=== PATIENT | male | born 1945 | race Caucasian/White ===

== ENCOUNTER 2018-10-30 10:45 | Outpatient (CLI) | payer MEDICARE ==
[2018-10-30 12:19] LABS: Hemoglobin 15.5 g/dL (14.0-18.0); Mean Corpuscular HGB CONC 34.3 g/dL (32.0-36.0); Mean Corpuscular Volume 96.4 fL (78.0-98.0); Mean Platelet Volume 7.5 fL (7.4-10.4); Platelet Count 194 thou/uL (130-400); RBC Distribution Width 13.2 % (11.5-14.5); Red Blood Cell (RBC) Count 4.68 mill/uL (4.70-6.10); White Blood Cell (WBC) Count 8.7 thou/uL (4.8-10.8)
[2018-10-30 12:27] LABS: Bilirubin Negative (Negative); Blood, Urine Negative (Negative); Clarity Clear (Clear); Glucose, Urine (Dipstick) Normal (Negative); Leukocyte 75 Leu/uL (Negative); Nitrite Negative (Negative); Protein, Urine (Dipstick) 10 mg/dL (Neg-Trace); WBC/HPF 21-50 HPF (0-3)
[2018-10-30 12:29] LABS: PTT 30.1 SEC (22.9-36.1); Prothrombin Time 13.4 SEC (12.0-14.7)
[2018-10-30 12:38] LABS: Anion Gap 12 mmol/L (10-20); BUN (Urea Nitrogen) 12 mg/dL (8.4-25.7); Calc. Creatinine Clearance 0 mL/min (70-130); Calcium 9.5 mg/dL (7.8-10.44); Carbon Dioxide 29 mmol/L (23-31); Chloride 105 mmol/L (98-107); Estimated GFR-MDRD Greater than 90; Glucose 109 mg/dL (80-115); Potassium 3.8 mmol/L (3.5-5.1); Sodium 142 mmol/L (136-145)
[2018-10-30 13:19] LABS: RBC/HPF 0-3 HPF (0-3)
== END 2018-10-30 10:46 | disposition home or self-care (01) ==
LOC: LABBT 10:45
PROVIDERS: ATTEND Urology
DX: Z01.818 Encounter for other preprocedural examination (principal); N40.1 Benign prostatic hyperplasia with lower urinary tract symptoms
CPT/HCPCS: 80048; 81001; 85027; 85610; 85730; 87086; 93005; 93010

== ENCOUNTER 2018-11-12 09:46 | Observation (INO) | payer MEDICARE ==
[2018-10-30 10:59] VITALS: BMI 25.4
[2018-11-12] MEDS ORDERED: Sodium Chloride 0.9% 100 ML ONE (11:21)
[2018-11-12] MEDS ORDERED: cefTRIAXone\\ROCEPHIN 1 GM VIAL ONE (11:21)
[2018-11-12] MEDS ORDERED: HYDROmorphone 0.5 MG/0.5 ML SYRINGE ONE (12:09)
[2018-11-12] MEDS ORDERED: Fentanyl 100 MCG/2 ML VIAL ONE (12:09)
[2018-11-12] MEDS ORDERED: Ondansetron HCl/PF 4 MG/2 ML Vial IVP PRN (13:39)
[2018-11-12] MEDS ORDERED: HYDROmorphone 2 MG/ML VIAL SLOW IVP PRN (13:39)
[2018-11-12] MEDS ORDERED: Promethazine HCl 25 MG/ML VIAL SLOW IVP PRN (13:39)
[2018-11-12] MEDS ORDERED: PACU-Morphine 4MG/ML VIAL SLOW IVP PRN (13:39)
[2018-11-12] MEDS ORDERED: Promethazine HCl 25 MG/ML VIAL IM PRN (13:39)
[2018-11-12] MEDS ORDERED: Albuterol Sulfate 1.25 MG/3 ML NEB NEB PRN (13:50)
[2018-11-12] MEDS ORDERED: PROVENTIL INHALER 6.7 G (200 INHALATIONS) INH PRN (13:50)
[2018-11-12] MEDS ORDERED: Phenazopyridine HCl 97.5 MG TABLET PO PRN (13:51)
[2018-11-12] MEDS ORDERED: Morphine 4 MG/ML VIAL SLOW IVP PRN (13:51)
[2018-11-12] MEDS ORDERED: Acetaminophen 500 MG TAB PO PRN (13:51)
[2018-11-12] MEDS ORDERED: Oxybutynin 5 MG TAB PO PRN (13:51)
[2018-11-12] MEDS ORDERED: Ondansetron PF 4 MG/2 ML Vial IVP PRN (13:51)
[2018-11-12] MEDS ORDERED: diphenhydrAMINE 25 MG CAP PO PRN (13:51)
[2018-11-12] MEDS ORDERED: Mag-Al 1200 mg/1200 mg/30 ML UDCUP PO PRN (13:51)
[2018-11-12] MEDS ORDERED: Bisacodyl 10 MG SUPP PR PRN (13:51)
[2018-11-12] MEDS ORDERED: hydrALAZINE 20 MG/ML VIAL SLOW IVP PRN (13:51)
[2018-11-12] MEDS ORDERED: traMADol HCl 50 MG TAB PO PRN (13:53)
[2018-11-12] MEDS ORDERED: Ketorolac Tromethamine 30 MG/ML VIAL ONE ×2 (13:57→14:06)
[2018-11-12] MEDS ORDERED: Methotrexate Sodium 2.5 MG TAB PO SCH (14:00)
[2018-11-12] MEDS ORDERED: Lidocaine 1% PF 5 ML VIAL ONE (14:06)
[2018-11-12] MEDS ORDERED: Ondansetron PF 4 MG/2 ML Vial ONE (14:06)
[2018-11-12] MEDS ORDERED: PROPOFOL 200 MG/20 ML VIAL ONE (14:06)
[2018-11-12] MEDS ORDERED: Dexamethasone 20 MG/5 ML VIAL ONE (14:06)
[2018-11-12] MEDS ORDERED: ePHEDrine 50 MG/ML VIAL ONE (14:06)
--- NOTE | 2018-11-12 17:15 | OP ---
DATE OF PROCEDURE: 11/12/2018 SERVICE: Urology. PREOPERATIVE DIAGNOSIS: Benign prostatic hyperplasia, regrowth. POSTOPERATIVE DIAGNOSIS: Benign prostatic hyperplasia, regrowth. PROCEDURE PERFORMED: Repeat transurethral resection of the prostate. INDICATION FOR PROCEDURE: Mr. Polo is a 73-year-old white male with a history of TURP in the past. He had recurrent urinary symptoms and on cystoscopy has a dominant regrowth nodule along the lateral lobe of his prostate. I discussed the medical therapy versus surgical therapy and he has agreed to proceed forward with surgical resection. Risks and benefits have been discussed and he has agreed to proceed forward. DESCRIPTION OF PROCEDURE: After identification of armband and verification of consent, the patient was brought back to the operating room, where he underwent general anesthesia with an LMA. He was then placed in the lithotomy position and prepped and draped in a sterile fashion. After appropriate time-out, an attempt to place a lubricated 26-[place] resectoscope sheath with visual obturator was unsuccessful at the meatus. The meatus had to be dilated with Otley sounds up to 30-[place] at which point, the visual obturator was able to be passed easily. There was a mild bulbar urethral stricture, which was able to be navigated past with the visual obturator and into the prostatic fossa, which showed significant regrowth of prostate tissue. The bladder neck and the remainder of the prostate was open. The visual obturator was then switched out for the bipolar prostate resectoscope loop. Resection was started on the lateral lobe, which we had the dominant regrowth nodule and resected down until it was flushed with the remainder of the prostate TUR resection cavity. There was some lateral and anterior regrowth as well, which we resected. Resection was carried down until it was flushed with the prostate capsule for the remainder of the prostate fossa all the way from the bladder neck to the verumontanum. The bladder neck was not incised as it was widely patent and I did not want to risk a bladder neck contracture. Upon completion, the prostate was wide open. Meticulous hemostasis was performed of the prostate fossa and then the prostate chips were evacuated with the resectoscope loop and with an Cubeit.fmik evacuator. Both ureters were identified in orthotopic location unharmed at the end of the procedure. The prostate fossa was dry. The resectoscope was then removed and attempts to place a 22-[place] three-way Wilson catheter was unsuccessful as the catheter was coiling within the prostate. The resectoscope had to be reintroduced with the visual obturator back into the bladder. The obturator and camera were then removed leaving the outer sheath in place. An Amplatz Super Stiff wire was then placed through the outer sheath into the bladder and the outer sheath removed. The three-way Wilson catheter was converted to a [place] tip catheter using a 14-gauge Angiocath needle, which used to guide a wire through the catheter, which was then placed over the Super Stiff wire into the bladder. The wire was then removed and 30 mL of sterile water placed into the balloon. CBI was initiated and hooked up to gravity drainage. The patient was then taken out of lithotomy, awakened, taken to PACU for recovery in stable condition. COMPLICATIONS: None. ESTIMATED BLOOD LOSS: Minimal. RETAINED TUBES AND DRAINS: A 22-[place] three-way Wilson catheter. SPECIMENS: Prostate chips. DISPOSITION: The patient will be kept in the hospital overnight for monitoring of hematuria. We will plan a void trial in the morning and discharge home subsequently. Job ID: [id number]
[2018-11-12] MEDS ORDERED: Polyethylene Glycol 3350 17 GM Packet PO SCH (21:00)
[2018-11-12] MEDS ORDERED: BUDESONIDE NS SCH (21:00)
[2018-11-12] MEDS ORDERED: Pravastatin Sodium 40 MG TAB PO SCH (21:00)
[2018-11-13 04:16] LABS: #Lymphocytes 0.6 thou/uL (1.20-3.40); #Monocytes 0.7 thou/uL (0.11-0.59); #Neutrophils 10.2 thou/uL (1.40-6.50); %Basophils 0.1 % (0.0-1.0); %Eosinophils 0.1 % (0.0-10.0); %Lymphocytes 5.1 % (21.0-51.0); %Monocytes 5.7 % (0.0-10.0); Hemoglobin 13.9 g/dL (14.0-18.0); Mean Corpuscular HGB CONC 33.8 g/dL (32.0-36.0); Mean Corpuscular Hemoglobin 32.2 pg (27.0-31.0); Mean Corpuscular Volume 95.1 fL (78.0-98.0); Mean Platelet Volume 7.3 fL (7.4-10.4); Platelet Count 202 thou/uL (130-400); RBC Distribution Width 13.3 % (11.5-14.5); Red Blood Cell (RBC) Count 4.31 mill/uL (4.70-6.10); White Blood Cell (WBC) Count 11.5 thou/uL (4.8-10.8)
[2018-11-13 05:23] LABS: Anion Gap 11 mmol/L (10-20); BUN (Urea Nitrogen) 17 mg/dL (8.4-25.7); Calc. Creatinine Clearance 101 mL/min (70-130); Carbon Dioxide 26 mmol/L (23-31); Chloride 104 mmol/L (98-107); Estimated GFR-MDRD Greater than 90; Glucose 158 mg/dL (83-110); Potassium 4.1 mmol/L (3.5-5.1); Sodium 137 mmol/L (136-145)
[2018-11-13] MEDS ORDERED: Folic Acid 1 MG TAB PO SCH (09:00)
[2018-11-13] MEDS ORDERED: cefTRIAXone\\ROCEPHIN 1 GM in Sodium Chloride 0.9% 100 ML IVPB SCH (09:00)
[2018-11-13 12:15] VITALS: BP 120/69; TEMP 98
--- NOTE | 2018-11-13 15:10 | PRG ---
DATE OF SERVICE: 11/13/2018 SUBJECTIVE: The patient states he is doing well. No complaints. No pain. No bladder spasms. OBJECTIVE: VITAL SIGNS: Temperature 97.7, pulse 67, respirations 18, blood pressure 111/77, and saturations 96% on room air. GENERAL: No apparent distress. CARDIOVASCULAR: Regular rate and rhythm. ABDOMEN: Soft, nontender, and nondistended. : Wilson catheter in place. CBI off. Urine is completely clear. EXTREMITIES: No edema. SCDs in place. LABORATORY EVALUATION: The full set of labs are in the [facility] system, which I have reviewed. Of note, hemoglobin 13.9 with a creatinine of 0.7. ASSESSMENT AND PLAN: A 73-year-old white male, status post repeat transurethral resection of the prostate, postoperative day #1 with clear urine. We will plan void trial. If urine is clear and the patient able to void, the patient can be discharged home. He will follow up with me in approximately 1 to 2 weeks for postop check. I have gone over his discharge instructions and discharge medications with him. Job ID: [id number]
== END 2018-11-13 14:55 | disposition home or self-care (01) ==
LOC: SDC 09:46 → SURG A 14:13
PROVIDERS: ADMIT Urology; ATTEND Urology
PROC: 0VT08ZZ Resection of Prostate, Via Natural or Artificial Opening Endoscopic (ICD-10-PCS; principal; 2018-11-12)
DX: N40.1 Benign prostatic hyperplasia with lower urinary tract symptoms (principal); R39.12 Poor urinary stream; R30.0 Dysuria; R35.0 Frequency of micturition; R35.1 Nocturia; E78.00 Pure hypercholesterolemia, unspecified; J45.909 Unspecified asthma, uncomplicated; M06.9 Rheumatoid arthritis, unspecified; R09.1 Pleurisy; Z79.899 Other long term (current) drug therapy; Z88.1 Allergy status to other antibiotic agents; Z88.5 Allergy status to narcotic agent
CPT/HCPCS: 52601; 80048; 85025; 88305; 96374; G0378; 36415; J0696; J1100; J1170; J1885; J2001; J2405; J2704; J3010; J3490

== ENCOUNTER 2020-02-09 11:27 | Inpatient (IN) | payer MEDICARE, OTHER ==
[~2020-02-09 11:27] MED LIST: Dexamethasone 20 MG/5 ML VIAL ONE; Iopamidol-370 76% 500 ML 1 ML ONE; Ketorolac Tromethamine 30 MG/ML VIAL ONE; Lidocaine 1% PF 5 ML VIAL ONE; Ondansetron PF 4 MG/2 ML Vial ONE; PROPOFOL 200 MG/20 ML VIAL ONE; Rocuronium Bromide 10 MG/ML (10ML VIAL) ONE; Succinylcholine Chloride 20 MG/ML 10 ml SYRINGE FS ONE
[2020-02-09] MEDS ORDERED: Ketorolac Tromethamine 30 MG/ML VIAL ONE (12:02)
[2020-02-09 12:13] LABS: #Basophils 0.1 thou/uL (0.0-0.2); #Eosinphils 0.1 thou/uL (0.0-0.7); #Lymphocytes 0.9 thou/uL (1.20-3.40); #Monocytes 0.4 thou/uL (0.11-0.59); #Neutrophils 7.5 thou/uL (1.40-6.50); %Basophils 0.6 % (0.0-1.0); %Eosinophils 0.7 % (0.0-10.0); %Lymphocytes 9.5 % (21.0-51.0); %Monocytes 4.7 % (0.0-10.0); %Neutrophils 84.4 % (42.0-75.0); Hemoglobin 14.9 g/dL (14.0-18.0); Mean Corpuscular HGB CONC 35.4 g/dL (32.0-36.0); Mean Corpuscular Hemoglobin 33.8 pg (27.0-31.0); Mean Corpuscular Volume 95.4 fL (78.0-98.0); Mean Platelet Volume 7.6 fL (7.4-10.4); Platelet Count 209 thou/uL (130-400); RBC Distribution Width 12.6 % (11.5-14.5); Red Blood Cell (RBC) Count 4.39 mill/uL (4.70-6.10); White Blood Cell (WBC) Count 8.9 thou/uL (4.8-10.8)
[2020-02-09 12:38] LABS: ALT (SGPT) 21 U/L (8-55); AST (SGOT) 21 U/L (5-34); Albumin 4.2 g/dL (3.4-4.8); Alkaline Phosphatase 66 U/L (40-110); Anion Gap 13 mmol/L (10-20); BUN (Urea Nitrogen) 11 mg/dL (8.4-25.7); Bilirubin, Total 1.2 mg/dL (0.2-1.2); Calc. Creatinine Clearance 0 mL/min (70-130); Calcium 9.2 mg/dL (7.8-10.44); Carbon Dioxide 25 mmol/L (23-31); Chloride 105 mmol/L (98-107); Estimated GFR-MDRD Greater than 90; Globulin 2.5 g/dL (2.4-3.5); Glucose 91 mg/dL (83-110); Lipase 22 U/L (8-78); Potassium 3.8 mmol/L (3.5-5.1); Protein, Total 6.7 g/dL (5.8-8.1); Sodium 139 mmol/L (136-145)
[2020-02-09 12:57] LABS: Bilirubin Negative (Negative); Blood, Urine Negative (Negative); Clarity Clear (Clear); Glucose, Urine (Dipstick) Normal (Negative); Ketone, Urine 20 mg/dL (Negative); Leukocyte Negative Leu/uL (Negative); Nitrite Negative (Negative); Protein, Urine (Dipstick) Negative (Neg-Trace); Urobilinogen Normal mg/dL (Less than 2); pH, Urine 6.5 (5.0-9.0)
--- NOTE | 2020-02-09 13:14 | CT ---
EXAM: CT ABDOMEN AND PELVIS HISTORY: Lower abdominal pain, x3 days COMPARISON: None. Procedure: Multiple contiguous axial images were obtained and a CT of the abdomen and pelvis with IV contrast. C oronal reformats were performed. FINDINGS: Lower Chest: within normal limits. Vessels: Atherosclerosis of a nonaneurysmal aorta Heart: Normal heart size. No significant pericardial fluid Abdomen: Portal vein:Patent Gallbladder: No calcified gallstones. Normal caliber wall. Liver: within normal limits. Pancreas: within normal limits. Spleen: within normal limits. Adrenals: within normal limits. Kidneys: Symmetric enhancement. No obstructive uropathy. Peritoneum: No ascites or free air, no fluid collection. There does appear to be edema involving the lower central abdominal mesentery. No associated well-defined fluid collection. Bowel: Limited evaluation due to the lack of oral contrast administration. No evidence of bowel obstr uction. Ileocecal junction is unremarkable. Normal caliber appendix. Scattered fecal material in a nondistended, nondilated colon. Diverticulosis, without evidence of diverticulitis. Mesentery and Retroperitoneum: No enlarged or retroperitoneal lymph nodes. Abdominal Wall: Small umbilical hernia containing mesenteric fat Pelvis: Reproductive Organs: Reproductive organs are unremarkable. Pelvis: No mass, lymphadenopathy, free air or free fluid. Bladder: within normal limits. Bones: No lytic or blastic lesions in the osseous structures. Multilevel vacuum disc phenomenon. [place] llic cage at the L5-S1 level. IMPRESSION: 1. Stranding of the central abdominal mesentery. Etiology is uncertain. No obvious small bowel source . Correlate for is mesenteritis. Consider GI or general surgical consultation.
[2020-02-09] MEDS ORDERED: Glycopyrrolate 0.4 MG/ 2 ML VIAL SLOW IVP SCH (14:30)
[2020-02-09] MEDS ORDERED: Glycopyrrolate 0.2 MG/ML 5 ML SYRINGE SLOW IVP SCH (15:00)
[2020-02-09] MEDS ORDERED: Acetaminophen 500 MG TAB ONE ×2 (15:12→15:30)
[2020-02-09] MEDS ORDERED: Piperacillin/Tazobactam 4.5 GM VIAL ONE (15:53)
[2020-02-09] MEDS ORDERED: metroNIDAZOLE 500 MG in Premix Bag 1 BAG IVPB ONE (16:15)
--- NOTE | 2020-02-09 16:20 | HP ---
HISTORY OF PRESENT ILLNESS: Manoj Polo is a 74-year-old male patient with severe abdominal pain for 2 days, it is worsening, presents to the emergency room, evaluated with normal CBC, basic metabolic profile, normal liver function tests, normal lipase. Troponins are normal. The patient had a colonoscopy, Dr. Willis on 01/19/2020, had a couple of polyps removed. The patient states he had a very small bowel movement yesterday without blood. The patient's CAT scan of abdomen and pelvis revealed some mesenteric edema, otherwise unremarkable. ALLERGIES: LEVOFLOXACIN CAUSES RASH; CODEINE, GI UPSET, POSSIBLE RASH, HE DOES NOT RECALL. SOCIAL HISTORY: Tobacco, none. Alcohol, none. MEDICATIONS: 1. Flomax 0.4 mg two tabs a day. 2. Pravachol 40 mg at bedtime. 3. MiraLAX daily. 4. Azo-Standard. 5. Methotrexate 2.5 mg q.7 days. 6. Folic acid. 7. Calcium. 8. Albuterol and Ventolin inhalers p.r.n. PAST SURGICAL HISTORY: TURP in 2019, colonoscopy as noted above. No other surgeries. PAST MEDICAL HISTORY: Irritable bowel syndrome, BPH status post TURP. REVIEW OF SYSTEMS: Noncontributory. The patient lives alone. He is retired. 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 PHYSICAL EXAMINATION: VITAL SIGNS: Blood pressure 140/88, heart rate 90, respiratory rate 18. HEAD, EARS, EYES, NOSE, AND THROAT: Unremarkable. Sclerae nonicteric. SKIN: Nonjaundiced. NECK: Without masses. LUNGS: Clear to auscultation. CARDIAC: Regular rate and rhythm without murmur or gallop. ABDOMEN: Exquisitely tender with peritoneal signs throughout. No bowel sounds. EXTREMITIES: Unremarkable. ASSESSMENT AND PLAN: Abdominal pain of uncertain etiology. CAT scan reveals mesenteric edema. Based on the degree of his pain without significant findings, would recommend laparoscopy, possible laparotomy based on laparoscopic findings. There is no evidence of hernias. I have personally reviewed his CAT scan. There is no significant constipation. We will plan rapid COVID test and colonoscopy. We will plan laparotomy if indicated. Job ID: [id number]
[2020-02-09] MEDS ORDERED: Bupivacaine HCl 0.5%/Epinephrine 1:200,000/PF 30 ml Vial ONE (16:37)
[2020-02-09 17:05] LABS: SARS-CoV-2 NAA Rapid Test Not Detected (NotDetected)
[2020-02-09] MEDS ORDERED: Sodium Chloride 0.9% 0 ML ONE (17:07)
[2020-02-09] MEDS ORDERED: Piperacillin/Tazobactam 3.375 GM VIAL ONE (17:07)
[2020-02-09] MEDS ORDERED: Fentanyl 100 MCG/2 ML VIAL ONE ×3 (17:21→19:33)
[2020-02-09] MEDS ORDERED: SUGAMMADEX SODIUM 200 MG/2 ML VIAL ONE (18:25)
[2020-02-09] MEDS ORDERED: Lorazepam 2 MG/ML VIAL SLOW IVP PRN (19:07)
[2020-02-09] MEDS ORDERED: Ondansetron ODT 4 MG TAB PO PRN (19:07)
[2020-02-09] MEDS ORDERED: hydrALAZINE 20 MG/ML VIAL SLOW IVP PRN (19:07)
[2020-02-09] MEDS ORDERED: traMADol HCl 50 MG TAB PO PRN (19:10)
[2020-02-09] MEDS ORDERED: Acetaminophen 500 MG TAB PO PRN (19:10)
[2020-02-09] MEDS ORDERED: PROVENTIL INHALER 6.7 G (200 INHALATIONS) INH PRN (19:12)
[2020-02-09] MEDS ORDERED: Albuterol Sulfate 1.25 MG/3 ML NEB NEB PRN (19:12)
[2020-02-09] MEDS ORDERED: Fleet Enema 133 ML BOT PR SCH (19:30)
--- NOTE | 2020-02-09 21:13 | OP ---
DATE OF PROCEDURE: 02/09/2020 PREOPERATIVE DIAGNOSIS: Severe abdominal pain. History of constipation. POSTOPERATIVE DIAGNOSIS: Severe abdominal pain. History of constipation. PROCEDURE PERFORMED: Diagnostic laparoscopy. Normal small bowel. No adhesions. Normal appendix. Normal-looking gallbladder, normal-looking liver. ANESTHESIA: General, local 0.5% Marcaine with epinephrine 30 mL. DESCRIPTION OF PROCEDURE: The patient was taken to the operating room where under general anesthesia Wilson catheter placed at the beginning of the procedure and removed at the end. Abdomen was prepared with ChloraPrep and draped in routine fashion. Left lateral subcostal skin incision made. Pneumoperitoneum to 15 mmHg was obtained with a Veress needle, replaced with a 5 port and laparoscope inserted. Left lateral mid abdominal incision made. A 5 port placed. Left lower quadrant lateral incision made and a 5 port placed. The colon was noted to be normal. Appendix noted to be normal. Gallbladder and liver noted to be normal. Colon visualized, noted to be normal. Terminal ileum identified and traced up to the ligament Treitz noted to be normal. There were no adhesions. No evidence of ischemia. Irrigant and pneumoperitoneum evacuated. All instruments removed. All skin incisions were approximated with interrupted subdermal 4-0 Monocryl and dermal glue applied. The patient has a history of constipation. On reviews of his CAT scan he had some [id number] stool in sigmoid colon. Discussed has been following. Plan is to hospitalized him overnight, observe him, give enemas, laxatives and hopefully can be discharged home in the next 24 to 48 hours. He just had a colonoscopy in the last 3 weeks. Job ID: [id number]
[2020-02-09] MEDS ORDERED: Sodium Chloride 0.9% 1,000 ML IV SCH (22:00)
[2020-02-09] MEDS: Polyethylene Glycol 3350 17 GM Packet PO SCH (22:13)
[2020-02-09] MEDS: Enoxaparin Sodium 40 MG/0.4 ML SYRINGE SC SCH (22:14)
[2020-02-09] MEDS: Calcium Carbonate 600 MG + Vit D TAB PO SCH (22:15)
[2020-02-09] MEDS: Ketorolac Tromethamine 30 MG/ML VIAL IVP PRN (22:15)
[2020-02-09] MEDS: Famotidine 20 MG TAB PO SCH (22:15)
[2020-02-09] MEDS: traMADol HCl 50 MG TAB PO PRN (22:16)
[2020-02-09] MEDS: Lactated Ringer's 1,000 ML IV SCH (22:29)
[2020-02-09 22:46] VITALS: BMI 23.9
[2020-02-10] MEDS: Lactated Ringer's 1,000 ML IV SCH ×3 (04:23→19:28)
[2020-02-10 05:49] LABS: #Lymphocytes 0.4 thou/uL (1.20-3.40); #Monocytes 0.1 thou/uL (0.11-0.59); #Neutrophils 6.7 thou/uL (1.40-6.50); %Basophils 0.2 % (0.0-1.0); %Eosinophils 0.3 % (0.0-10.0); %Lymphocytes 5.8 % (21.0-51.0); %Monocytes 1.5 % (0.0-10.0); %Neutrophils 92.2 % (42.0-75.0); Hemoglobin 14.5 g/dL (14.0-18.0); Mean Corpuscular HGB CONC 35.3 g/dL (32.0-36.0); Mean Corpuscular Hemoglobin 34.1 pg (27.0-31.0); Mean Corpuscular Volume 96.6 fL (78.0-98.0); Mean Platelet Volume 7.4 fL (7.4-10.4); Platelet Count 206 thou/uL (130-400); RBC Distribution Width 12.6 % (11.5-14.5); Red Blood Cell (RBC) Count 4.25 mill/uL (4.70-6.10); White Blood Cell (WBC) Count 7.3 thou/uL (4.8-10.8)
[2020-02-10] MEDS: traMADol HCl 50 MG TAB PO PRN (05:54)
[2020-02-10] MEDS: Ketorolac Tromethamine 30 MG/ML VIAL IVP PRN (05:55)
[2020-02-10] MEDS ORDERED: Fleet Enema 133 ML BOT FS PRN (06:44)
[2020-02-10] MEDS ORDERED: Magnesium Citrate 300 ML BOT PO SCH (08:00)
[2020-02-10] MEDS: Tamsulosin HCl 0.4 MG CAP PO SCH (10:02)
[2020-02-10] MEDS: Polyethylene Glycol 3350 17 GM Packet PO SCH ×4 (10:02→22:18)
[2020-02-10] MEDS: Famotidine 20 MG TAB PO SCH ×3 (10:02→22:21)
--- NOTE | 2020-02-10 17:53 | PRG ---
DATE OF SERVICE: SUBJECTIVE: Manoj Polo is doing well today. A laparoscopy yesterday was normal. Probably the etiology of his pain is more constipation and colonic motility, which he has had problem with for years. He follows Dr. Willis for this. The patient states he is having some problems with urinating. He states he has been seeing Dr. Alexandra and has had a TURP and had been seen by Dr. Alexandra recently telling him that there were no problems. Flomax was recently discontinued, although this is continued in the hospital. The patient states that after he has a bowel movement, he is able to urinate better. He told me that Dr. Alexandra tells him to see his project administrator and his project administrator tells him to see Dr. Alexandra. The patient still has some bloating. He is tolerating his diet, eating a little better. OBJECTIVE: VITAL SIGNS: Temperature 98.4 degrees, pulse 72, blood pressure 142/76. LUNGS: Clear to auscultation. CARDIAC: Regular rate and rhythm without murmur or gallop. ABDOMEN: Soft. Mildly distended. Laparoscopic incision is well healed. LABORATORY DATA: This morning, CBC is normal. Basic metabolic profile yesterday was normal. COVID was negative on 02/08. ASSESSMENT AND PLAN: Poor colonic motility constipation causing pain. The patient is probably not going to be discharged home until tomorrow. Continue magnesium citrate, enemas, MiraLAX, fiber. Follow up with GI once he is discharged. Follow up with Urology once he is discharged. Job ID: [id number]
[2020-02-10] MEDS: Calcium Carbonate 600 MG + Vit D TAB PO SCH (22:19)
[2020-02-10] MEDS: Enoxaparin Sodium 40 MG/0.4 ML SYRINGE SC SCH (22:19)
[2020-02-11] MEDS: Tamsulosin HCl 0.4 MG CAP PO SCH (08:50)
[2020-02-11] MEDS: Famotidine 20 MG TAB PO SCH (08:51)
[2020-02-11] MEDS: Polyethylene Glycol 3350 17 GM Packet PO SCH (08:51)
[2020-02-11 09:05] LABS: #Eosinphils 0.2 thou/uL (0.0-0.7); #Lymphocytes 1.4 thou/uL (1.20-3.40); #Monocytes 0.6 thou/uL (0.11-0.59); #Neutrophils 5.4 thou/uL (1.40-6.50); %Basophils 0.5 % (0.0-1.0); %Eosinophils 2.4 % (0.0-10.0); %Lymphocytes 18.8 % (21.0-51.0); %Monocytes 7.9 % (0.0-10.0); %Neutrophils 70.4 % (42.0-75.0); Hemoglobin 13.6 g/dL (14.0-18.0); Mean Corpuscular HGB CONC 34.8 g/dL (32.0-36.0); Mean Corpuscular Hemoglobin 34.3 pg (27.0-31.0); Mean Corpuscular Volume 98.5 fL (78.0-98.0); Mean Platelet Volume 7.2 fL (7.4-10.4); Platelet Count 192 thou/uL (130-400); RBC Distribution Width 13.1 % (11.5-14.5); Red Blood Cell (RBC) Count 3.96 mill/uL (4.70-6.10); White Blood Cell (WBC) Count 7.7 thou/uL (4.8-10.8)
[2020-02-11 09:31] LABS: Anion Gap 12 mmol/L (10-20); BUN (Urea Nitrogen) 8 mg/dL (8.4-25.7); Calc. Creatinine Clearance 93 mL/min (70-130); Calcium 8.7 mg/dL (7.8-10.44); Carbon Dioxide 28 mmol/L (23-31); Chloride 105 mmol/L (98-107); Estimated GFR-MDRD Greater than 90; Glucose 94 mg/dL (83-110); Potassium 3.9 mmol/L (3.5-5.1); Sodium 141 mmol/L (136-145)
[2020-02-11 11:29] LABS: Bilirubin Negative (Negative); Blood, Urine Large (Negative); Glucose, Urine (Dipstick) Negative (Negative); Ketone, Urine Negative (Negative); Leukocyte Negative (Negative); Nitrite Negative (Negative); Protein, Urine (Dipstick) Trace mg/dL (Neg-Trace); Specific Gravity, Urine 1.025 (1.005-1.030); Urobilinogen 0.2 mg/dL (Less than 2)
[2020-02-11 11:36] LABS: Clarity Turbid (Clear)
[2020-02-11 11:53] LABS: Bacteria/HPF None Seen HPF (None Seen); RBC/HPF Greater than 50 HPF (0-3); Squamous Epithelial None Seen HPF (0-3)
[2020-02-11 11:55] LABS: Urine Culture Reflex Yes Yes
[2020-02-11] MEDS ORDERED: Methotrexate Sodium 2.5 MG TAB PO SCH (12:45)
[2020-02-11 14:26] VITALS: BP 139/75; TEMP 97.7
--- NOTE | 2020-02-12 01:25 | DIS ---
DATE OF ADMISSION: 02/09/2020 DATE OF DISCHARGE: 02/11/2020 DISCHARGE DIAGNOSIS: Abdominal pain of uncertain etiology, probably secondary to rheumatoid arthritis and irritable bowel syndrome and constipation. PROCEDURE IN THIS HOSPITALIZATION: CT scan of the abdomen and pelvis. Diagnostic laparoscopy, noting normal small bowel. No intraabdominal pathology. CAT scan suggested [id number] sigmoid constipation. The patient had a flare-up of his rheumatoid arthritis, and received a dose of methotrexate that he is due for tomorrow prior to discharge today, Friday. The patient follows up with Dr. Willis and Dr. Alexandra. HISTORY: A 74-year-old male presenting to the emergency room with severe abdominal pain. He had diffuse guarding. His CBC, basic metabolic panel normal. CAT scan did not reveal any remarkable findings except for mesenteric edema. Mesenteric adenitis was suspected, although there is no lymphadenopathy. Because of the patient's severe pain, he was taken for laparoscopy that was normal. Postoperatively, he was treated for sigmoid constipation and given enemas and laxatives and had bowel movements, felt better, although is still having a central abdominal pain. The patient felt he had a flare-up of his rheumatoid arthritis, and was given a dose of methotrexate prior to discharge. The patient will follow up with Dr. Willis and Dr. Alexandra. The patient states he has problems urinating sometimes and this is aided by having a bowel movement. He states that he has talked to Dr. Willis, who told him that this is urinary problem. He has talked to Dr. Alexandra, who tells him this is a gastrointestinal problem. The patient has been taken off Flomax as he has had TURP procedures and cystoscopies. Follow up with Dr. Alexandra. The patient did have a Wilson catheter during the laparoscopy and had some hematuria postoperatively. He was reassured that this will resolve with time. He is COVID negative. His urinalysis on discharge did reveal hematuria, but no bacteria. Cultures obtained, pending. The patient will follow up with Dr. Roche in 2 to [address] Alexandra and Dr. Willis. Job ID: [id number]
--- NOTE | 2020-02-12 14:07 | EKG ---
Test Reason : Blood Pressure : / mmHG Vent. Rate : 081 BPM Atrial Rate : 081 BPM P-R Int : 192 ms QRS Dur : 078 ms QT Int : 382 ms P-R-T Axes : 097 090 059 degrees QTc Int : 443 ms Suspect arm lead reversal, interpretation assumes no reversal Normal sinus rhythm Rightward axis Borderline ECG Confirmed by SUJATHA JACINTO ([id number]), brands editor LILA ORELLANA ([id number] on 02/12/2020 2:07:28 PM Referred By: Confirmed By:SUJATHA Acosta
== END 2020-02-11 14:50 | disposition home or self-care (01) | DRG 358 ==
LOC: ERS 11:27 → SJJU 20:33
PROVIDERS: ADMIT Specialist; ATTEND Specialist
PROC: 0WJG4ZZ Inspection of Peritoneal Cavity, Percutaneous Endoscopic Approach (ICD-10-PCS; principal; 2020-02-09)
DX: K58.1 Irritable bowel syndrome with constipation (principal); M06.9 Rheumatoid arthritis, unspecified; Z20.828 Contact with and (suspected) exposure to other viral communicable diseases; N40.0 Benign prostatic hyperplasia without lower urinary tract symptoms; J44.9 Chronic obstructive pulmonary disease, unspecified; R31.9 Hematuria, unspecified; Z88.1 Allergy status to other antibiotic agents; Z88.5 Allergy status to narcotic agent; Z98.890 Other specified postprocedural states
CPT/HCPCS: 36415; 74177; 80048; 80053; 81001; 81003; 83605; 83690; 84484; 85025; 87086; 93005; 96365; 96375; J1100; J1650; J1885; J2060; J2405; J2543; J2704; J3010; J3490; J8610; Q9967; U0002

== ENCOUNTER 2020-05-11 14:06 | Emergency (ER) | payer MEDICARE ==
[2020-05-11] MEDS ORDERED: Iopamidol 370 76% 100 ML VIAL ONE (14:25)
[2020-05-11] MEDS ORDERED: Iopamidol 370 76% 50 ML VIAL FS ONE (14:25)
[2020-05-11 15:35] LABS: Bacteria/HPF None Seen HPF (None Seen); Bilirubin Negative (Negative); Blood, Urine Negative (Negative); Clarity Clear (Clear); Glucose, Urine (Dipstick) Normal (Negative); Ketone, Urine 20 mg/dL (Negative); Leukocyte 25 Leu/uL (Negative); Nitrite Negative (Negative); Protein, Urine (Dipstick) Negative (Neg-Trace); RBC/HPF 0-3 HPF (0-3); Specific Gravity, Urine 1.016 (1.002-1.036); Squamous Epithelial None Seen HPF (0-3); Urobilinogen Normal mg/dL (Less than 2); pH, Urine 5.5 (5.0-9.0)
[2020-05-11] MEDS ORDERED: Morphine 4 MG/ML VIAL ONE (15:39)
[2020-05-11] MEDS ORDERED: Ondansetron PF 4 MG/2 ML Vial ONE (15:39)
[2020-05-11] MEDS ORDERED: Ketorolac Tromethamine 30 MG/ML VIAL ONE (15:42)
[2020-05-11 15:54] LABS: #Eosinphils 0.1 thou/uL (0.0-0.7); #Lymphocytes 1.7 thou/uL (1.20-3.40); #Neutrophils 4.7 thou/uL (1.40-6.50); %Basophils 0.2 % (0.0-1.0); %Eosinophils 1.4 % (0.0-10.0); %Lymphocytes 22.8 % (21.0-51.0); %Monocytes 13.2 % (0.0-10.0); %Neutrophils 62.3 % (42.0-75.0); Hemoglobin 15.7 g/dL (14.0-18.0); Mean Corpuscular HGB CONC 33.7 g/dL (32.0-36.0); Mean Corpuscular Hemoglobin 32.6 pg (27.0-31.0); Mean Corpuscular Volume 96.7 fL (78.0-98.0); Mean Platelet Volume 7.5 fL (7.4-10.4); Platelet Count 435 thou/uL (130-400); RBC Distribution Width 12.5 % (11.5-14.5); Red Blood Cell (RBC) Count 4.81 mill/uL (4.70-6.10); White Blood Cell (WBC) Count 7.5 thou/uL (4.8-10.8)
[2020-05-11 16:03] LABS: AST (SGOT) 28 U/L (5-34); Albumin 4.3 g/dL (3.4-4.8); Anion Gap 19 mmol/L (10-20); Bilirubin, Total 0.7 mg/dL (0.2-1.2); Calc. Creatinine Clearance 0 mL/min (70-130); Calcium 9.7 mg/dL (7.8-10.44); Carbon Dioxide 22 mmol/L (23-31); Chloride 102 mmol/L (98-107); Globulin 3.6 g/dL (2.4-3.5); Glucose 86 mg/dL (83-110); Potassium 4.1 mmol/L (3.5-5.1); Protein, Total 7.9 g/dL (5.8-8.1); Sodium 139 mmol/L (136-145)
[2020-05-11 16:51] LABS: ALT (SGPT) 19 U/L (8-55); Alkaline Phosphatase 72 U/L (40-110); BUN (Urea Nitrogen) 9 mg/dL (8.4-25.7)
--- NOTE | 2020-05-11 18:01 | CT ---
CT abdomen and pelvis with IV and oral contrast HISTORY: Abdomen pain. COMPARISON: 02/09/2020. FINDINGS: Mild linear scarring at the right lung base. Prominent calcification throughout the arteria l structures. A 0.4 cm cyst is noted within the anterior segment right liver lobe near the dome, stable. No evidence of bowel obstruction or inflammation. A 0.3 cm calculus is present within nondilated calyx at the inferior pole of the left kidney. Tiny (l ess than 0.1 cm) calcifications also are present within nondilated calyces of each kidney. Urinary bladder is unremarkable. Postoperative changes at the lumbosacral junction. Degenerative changes throughout the lumbar spine. IMPRESSION : No acute abnormalities are demonstrated. Very small bilateral nonobstructing renal calculi.
== END 2020-05-11 18:40 | disposition home or self-care (01) ==
LOC: ERS 14:06
DX: R10.9 Unspecified abdominal pain (principal); M54.5 Low back pain; J44.9 Chronic obstructive pulmonary disease, unspecified; Z79.899 Other long term (current) drug therapy
CPT/HCPCS: 74177; 80053; 81003; 81015; 83605; 83690; 85025; 87040; 87086; 96374; 96375; J1885; J2270; J2405; Q9967

== ENCOUNTER 2020-11-16 16:00 | Outpatient (CLI) | payer MEDICARE | END 2020-11-16 16:01 | disposition home or self-care (01) | LOC: BICRAD 16:00 | PROVIDERS: ATTEND Internal Medicine | DX: R10.9 Unspecified abdominal pain (principal); K59.00 Constipation, unspecified; R14.0 Abdominal distension (gaseous) | CPT/HCPCS: 74018 ==

== ENCOUNTER 2021-09-25 09:58 | Outpatient (CLI) | payer MEDICARE ==
[2021-09-25] MEDS ORDERED: MD-Gastroview 120 ML BOT ONE (10:19)
== END 2021-09-25 09:59 | disposition home or self-care (01) ==
LOC: RAD 09:58
PROVIDERS: ATTEND Physician Assistant Medical
DX: K56.699 Other intestinal obstruction unspecified as to partial versus complete obstruction (principal); R10.13 Epigastric pain; R14.0 Abdominal distension (gaseous)
CPT/HCPCS: 74250; Q9963

== ENCOUNTER 2022-05-30 06:54 | Outpatient (CLI) | payer MEDICARE | END 2022-05-30 06:55 | disposition home or self-care (01) | LOC: NM 06:54 | PROVIDERS: ATTEND Physician Assistant Medical | DX: R11.0 Nausea (principal); R10.84 Generalized abdominal pain; R14.0 Abdominal distension (gaseous); R63.4 Abnormal weight loss; R14.2 Eructation; R19.4 Change in bowel habit | CPT/HCPCS: 78264; A9541 ==